=== PATIENT | male | born 1965 | race Caucasian/White ===

== ENCOUNTER 2018-09-26 12:51 | Emergency (ER) | payer OTHER ==
[~2018-09-26] VITALS: Ht 177.8 cm; Wt 77.1 kg
[2018-09-26] MEDS ORDERED: KEFLEX500 M1 PO (13:05)
[2018-09-26] MEDS ORDERED: BACTRIM DS TAB1 EACH PO (13:05)
[2018-09-26 13:10] VITALS: BP 121/86
== END 2018-09-26 13:11 | disposition home or self-care (01) ==
LOC: M.ERS 12:51
DX: L03.314 Cellulitis of groin (principal); A49.02 Methicillin resistant Staphylococcus aureus infection, unspecified site

== ENCOUNTER 2019-11-22 14:27 | Emergency (ER) | payer OTHER ==
[~2019-11-22] VITALS: Ht 177.8 cm; Wt 74.8 kg
[~2019-11-22 14:27] MED LIST: BACTRIM DS TAB1 EACH PO; KEFLEX500 M1 PO
[2019-11-22 15:38] LABS: ABSOLUTE BASOPHILS 0.1 thou/uL (0.0-0.2); ABSOLUTE EOSINOPHILS 0.3 thou/uL (0.0-0.7); ABSOLUTE LYMPHOCYTES 1.5 thou/uL (0.8-5.3); ABSOLUTE MONOCYTES 0.6 thou/uL (0.0-1.2); ABSOLUTE NEUTROPHILS 4.9 thou/uL (1.6-8.1); EOSINOPHILS 4.2 %; HEMATOCRIT 41.7 % (42.0-52.0); HEMOGLOBIN 13.7 gm/dL (14.0-18.0); LYMPHOCYTES 20.1 %; MCH 28.3 pg (26.0-34.0); MCHC 32.8 g/dL (28.0-37.0); MCV 86.3 fL (80.0-100.0); MONOCYTES 7.7 %; NUCLEATED RBCS 0 /100WBC; PLATELET COUNT* 285 thou/uL (150-400); RBC 4.83 mil/uL (4.50-6.00); RDW-CV 13.6 % (10.5-14.5); WBC 7.3 thou/uL (4.0-11.0)
[2019-11-22 15:55] LABS: CALCIUM 8.3 mg/dL (8.5-10.1); POTASSIUM 4.3 mmol/L (3.5-5.1)
[2019-11-22 15:59] LABS: ALBUMIN 3.5 g/dL (3.4-5.0); TOTAL BILIRUBIN 0.3 mg/dL (<0.1-1.0)
[2019-11-22] MEDS ORDERED: NORCO 5-325 TA1 EAC2 PO (17:15)
[2019-11-22] MEDS ORDERED: MEDROLDOSEPACK PO (17:15)
[2019-11-22] MEDS ORDERED: NAPROSYN500 MG PO (17:15)
[2019-11-22 17:24] VITALS: BP 154/80
== END 2019-11-22 17:25 | disposition home or self-care (01) ==
LOC: M.ERS 14:27
PROVIDERS: Nurse Practitioner Family
DX: M54.41 Lumbago with sciatica, right side (principal); R10.9 Unspecified abdominal pain